=== PATIENT | male | born 1975 | race Native Hawaiian/Other Pacific Islander ===

== ENCOUNTER 2023-09-21 22:00 | Emergency (ER) | payer SELFPAY ==
[~2023-09-21] VITALS: Ht 182.8 cm; Wt 121.1 kg
[~2023-09-21 22:00] MED LIST: FLEXERIL5 MG PO; NAPROSYN500 MG PO
[2023-09-21] MEDS ORDERED: NAPROXEN250 MG PO (23:29)
[2023-09-21] MEDS ORDERED: Ketorolac Tromethamine 60 MG/2 ML VIAL IM ONE (23:30)
== END 2023-09-21 23:46 | disposition home or self-care (01) ==
LOC: ED 22:00
DX: M25.511 Pain in right shoulder (principal); Z90.49 Acquired absence of other specified parts of digestive tract